=== PATIENT | male | born 1985 | race Caucasian/White ===

== ENCOUNTER 2022-09-02 10:04 | Outpatient (CLI) | payer OTHER ==
[2022-09-02 10:40] VITALS: BP 122/68
--- NOTE | 2022-09-02 10:40 | SLEEP CARE CONSULTATION ---
Information from patient questionnaire entered by Em Fox. I have reviewed and concur with the information entered by Em Fox. This document represents the service I personally performed and the decisions made by me, Tabby Gordon ARNP. History of Present Illness Service Date and Time: 09/02/2022 1004 Reason for Visit: New patient Chief Complaint: reports: Unrefreshed sleep, Snoring, Observed pauses in breathing, Fatigue, Frequent awakenings at night Date of Onset: OVER 10 YRS Usual bedtime: 830-9PM Time it takes to fall asleep: 30-60 minutes Snores at night: Yes Observed to quit breathing while asleep: Yes Sleeps alone due to snoring: No Number of times waking at night: 5+ Reasons for waking at night: reports: Choking, Snoring, Gasping for air Toss, Turn, or Twitch while sleeping: Yes Recalls having dreams: Yes Usually gets out of bed at: 630AM; weekends [id number] Feels refreshed in the morning: No Morning headache: No Sleepy or fatigued during the day: Yes Ever fallen asleep while driving: No (has had some drowsy driving) Takes day naps: No Dreams during day naps: No Prior sleep studies: Yes ([facility] [id number] [place] 2019) Additional HPI information: I had the pleasure of seeing СВЕТЛАНА RDZ today regarding the possibility of him having a sleep disorder. His current complaints are unrefreshed sleep, snoring, observed pauses in breathing, fatigue and frequent night awakenings. He comes in today to see if he has sleep apnea. He has had two previous sleep studies but was never contacted with the results. He has had is PCM check and they could not find any records. He continues to have daytime fatigue, loud snoring and pauses in breathing. He has recorded himself sleeping and heard for himself the gasping sounds after pauses in his snoring. He knows that he has large tonsils and has tried to have them removed. He wakes up tired and is tired throughout the day. He does not like to take naps because then he cannot get to sleep at night. He normally takes around 30-60 minutes to fall asleep and the wakes up 5+ times during the night. He has woke himself up snoring, choking and gasping for air. He states his father was diagnosed with sleep apnea but does not use the PAP machine prescribed. - Parasomnia Symptoms Ever been unable to move upon waking from sleep: No Walks in sleep: No Talks in sleep: Yes Ever acted out dreams in sleep: No Ever felt weak in the knees when startled or emotional: Yes Bothered by creepy, crawly, restless sensations in legs: Yes (occasionally at nightly) Problems with memory or concentration: Yes (both) Subjective Initial [place] Sleepiness Scale score: 20 (08/13/22) Past Medical History Past Medical History: reports: GERD Social History The patient's occupation is a AM. Patient is and lives in [place]. Have you smoked in the past 12 months: No Alcohol use: Yes Alcohol amount and frequency: RECREATIONALLY Caffeine use: Yes Caffeine amount and frequency: A COUPLE A DAY Family History Family history of sleep disordered breathing: Yes Family Hx Sleep Apnea: Father: Sleep apnea - Untreated Allergies and Home Medications Known drug allergies: No Drug allergies reviewed: Yes (NKDA) Home medication list reviewed: Yes Allergy and home medication list: Medications: Pantoprazole Review of Systems Weight gain over past 5 years: 40 Cardiovascular: reports: palpitations (occasional, has been checked), chest pain, irregular heart rate or pulse Respiratory: reports: shortness of breath Gastrointestinal: reports: heartburn, diarrhea Neurological: reports: headaches, disorientation, gait or balance problems Psychiatric: reports: anxiety, depression Ear/Nose/Throat: reports: nasal congestion, sinus problems, dry mouth/throat, wisdom teeth removed. denies: tonsillectomy Endocrine: reports: sluggishness, excessive thirst Musculoskeletal: reports: back pain Immunologic: reports: rash Physical Exam Vital signs obtained and entered by: EM Massey MA Blood Pressure: 122/68 (LEFT ARM) Cuff size: regular Heart Rate: 86 O2 Saturation: 96 Height: 6 ft Weight: 269 lb 6.4 oz Body Mass Index: 36.5 BMI Classification: Obese Neck circumference: 18 Mouth and throat: narrow oropharynx Soft palate: normal Hard palate: normal Uvula: normal Uvula visualization: 0% Mallampati Class IV Tongue: normal in size Tonsils: 3+/kissing Neck: normal w/o lymphadenopathy or thyromegaly Heart: regular rate and rhythm Lungs: clear bilaterally Impression and Plan 1. Suspected Obstructive Sleep Apnea-Hypopnea Syndrome, as suggested by a history of loud and irregular snoring, observed cessation of breath while asleep, gasping or choking in sleep, frequent awakening during the night, unrefreshed sleep, cognitive impairment, and excessive daytime sleepiness. Narrow oropharynx and obesity are common predisposing factors for obstructive sleep apnea-hypopnea syndrome. I recommend proceeding to polysomnography to confirm the diagnosis and to assess severity. If the patient has significant sleep disordered breathing, a manual CPAP titration study will also be performed to find the optimal treatment pressure. I informed the patient of what the sleep studies involve and after some discussion, obtained agreement to proceed. The pathophysiology of obstructive sleep apnea-hypopnea syndrome was discussed with the patient and health risks of cardiovascular and cerebrovascular disease if not treated. Risks of drowsy driving discussed in detail and patient advised to avoid long distance driving and to stick puller at the first sign of drowsiness. Patient agreed to plan. * Schedule polysomnography * Avoid long distance driving or driving when feeling sleepy. * Avoid alcohol, sedative and muscle relaxant around bedtime. * Attempt to lose weight. * Review instructions provided by trained office staff on how to prepare for the sleep study. * Return for follow-up after sleep study completed. Counseling Topics: Weight loss health impact Visit Type: In Office Time Spent with Patient (minutes): 30 Provider Statement: I spent 100% of the Face to Face Visit with the patient with greater than 50% spent counseling the patient and coordination of care.
== END 2022-09-02 10:05 | disposition home or self-care (01) ==
LOC: SC 10:04
PROVIDERS: ATTEND Nurse Practitioner Family
DX: R06.83 Snoring (principal); G47.8 Other sleep disorders; R06.81 Apnea, not elsewhere classified; G47.10 Hypersomnia, unspecified; R53.83 Other fatigue; E66.9 Obesity, unspecified; Z68.36 Body mass index [BMI] 36.0-36.9, adult
CPT/HCPCS: 99203; 99212

== ENCOUNTER 2022-09-15 19:36 | Outpatient (CLI) | payer OTHER | END 2022-09-15 19:37 | disposition home or self-care (01) | LOC: SC 19:36 | PROVIDERS: ATTEND Nurse Practitioner Family | DX: G47.33 Obstructive sleep apnea (adult) (pediatric) (principal) | CPT/HCPCS: 95810 ==

== ENCOUNTER 2022-10-08 12:46 | Outpatient (CLI) | payer OTHER ==
[2022-10-08 13:25] VITALS: BP 114/70
--- NOTE | 2022-10-08 13:25 | SLEEP CARE CONSULTATION ---
Information from patient questionnaire entered by Jessica Fox. I have reviewed and concur with the information entered by Jessica Fox. This document represents the service I personally performed and the decisions made by , Tabby Gordon ARNP. History of Present Illness Service Date and Time: 10/08/2022 1246 Initial [place] Sleepiness Scale score: 20 (08/13/22) Current [place] Sleepiness Scale score: 15 (10/08/22) Additional HPI information: СВЕТЛАНА RDZ returns for follow up and results of the recently performed polysomnography. I explained the pathophysiology behind obstructive sleep apnea. We then spent quite a bit of time discussing different treatment options. For mild obstructive sleep apnea, surgery and oral appliance are alternatives to nasal CPAP therapy but in moderate or severe cases, nasal CPAP is the most effective and reliable treatment. Because apnea is primarily in supine position, then positional management therapy could be effective. Methods discussed such as positioning with pillows, using a T-shirt with tennis balls in the back, or commercially available products that have a pillow format on back to prevent supine sleep. I reviewed the impact of weight changes on sleep apnea and strongly recommended losing weight. After some discussion, the patient opted to go with the nasal CPAP therapy. Nasal autoCPAP set at 4-15 cmH20 will be ordered with rationale explained. A manual titration study will be ordered if unable to find optimal pressure with office adjustments. I explained how CPAP machine works and what to expect when using the machine. Using CPAP every night in order to get used to it was emphasized. Patient advised to put CPAP mask on before getting into bed so as not to fall asleep without CPAP. To assist acclimation to CPAP use, it could also be used for a short time during day while reading or watching TV. The patient was instructed to call the CPAP supplier to discuss any mechanical problem that may occur. If the mask given is uncomfortable or is difficult to keep on through the night even with adjustment, contact the CPAP supplier as many will replace with another mask style if notified before 30 days. If snoring or perceives is not getting enough air or too much air from the machine, notify this office. Patient counseled not drink alcohol less than 4 hours before bedtime as it can increase snoring and apnea. Patient was cautioned about risks of drowsy driving until sleepiness symptoms resolve. Sleep Study - Results Type of Sleep Study: Polysomnography (COMPLETED 09-15-22) Prior sleep studies: Yes ([facility] [id number] [place] 2019) Polysomnography/Home Sleep Study results: IMPRESSION: The quality of the study is good. The patient had normal sleep efficiency. The sleep architecture was abnormal for sleep fragmentation and reduced amount of time spent in slow wave sleep (N3). Respiratory monitoring showed mild obstructive sleep apnea-hypopnea (AHI = 5.4) associated with frequent arousals, oxyhemoglobin desaturation and mild hypoxia ([place] oxygen saturation of 83%). The respiratory events occurred almost exclusively during the limited supine sleep (supine AHI = 98.7; non- supine = 2.20). Snore was light in intensity. There was no significant periodic leg movement of sleep. Cardiac rhythm was normal sinus rhythm without significant arrhythmia. No abnormal behavior (parasomnia) observed during the night. Allergies and Home Medications Drug allergies reviewed: Yes (NKDA) Home medication list reviewed: Yes (no changes) Review of Systems Review of systems same as previous: Yes (no changes) Physical Exam Vital signs obtained and entered by: JESSICA Massey MA Blood Pressure: 114/70 (LEFT ARM) Cuff size: regular Heart Rate: 72 O2 Saturation: 98 Height: 6 ft Weight: 269 lb 9.6 oz Body Mass Index: 36.6 BMI Classification: Obese Impression and Plan 1. Obstructive Sleep Apnea-Hypopnea Syndrome, mild, with lowest oxygen saturation of 83%. Obviously this is the cause of the patients symptoms of unrefreshed sleep, and excessive daytime sleepiness. Positive pressure therapy could benefit gastric reflux. As mentioned above, the patient will be started on nasal autoCPAP therapy with pressure set at 4-15 cmH2O. A manual titration study will be completed if unable to find optimal treatment pressure with office adjustments. Compliance guidelines also reviewed. A copy of compliance guidelines will be given for reference at check out. Because the apnea is more severe supine, I instructed to avoid sleeping supine using pillow positioning until able to start CPAP use. * Nasal auto CPAP therapy, pressure at 4-15 cm H2O. * Attempt to lose weight. * Avoid alcohol consumption near bedtime. * Avoid supine sleep until using CPAP. * The patient is again cautioned about driving until sleepiness completely resolves. * Return one month after CPAP obtained. I will assess response to therapy and compliance at that time. Counseling Topics: Sleeping position, Weight loss health impact Visit Type: In Office Time Spent with Patient (minutes): 21 Provider Statement: I spent 100% of the Face to Face Visit with the patient with greater than 50% spent counseling the patient and coordination of care.
== END 2022-10-08 12:47 | disposition home or self-care (01) ==
LOC: SC 12:46
PROVIDERS: ATTEND Nurse Practitioner Family
DX: G47.33 Obstructive sleep apnea (adult) (pediatric) (principal); E66.9 Obesity, unspecified; Z68.36 Body mass index [BMI] 36.0-36.9, adult
CPT/HCPCS: 99212; 99213

== ENCOUNTER 2022-12-01 13:45 | Outpatient (CLI) | payer OTHER ==
[2022-12-01 14:27] VITALS: BP 126/72
--- NOTE | 2022-12-01 14:27 | SLEEP CARE CONSULTATION ---
Information from patient questionnaire entered by Em Fox. I have reviewed and concur with the information entered by Em Fox. This document represents the service I personally performed and the decisions made by me, Tabby Gordon ARNP. History of Present Illness Service Date and Time: 12/01/2022 1345 Previous diagnosis: Mild, Obstructive Sleep Apnea-Hypopnea Syndrome AHI: 5.4 () Reason for follow up: first compliance Equipment type: CPAP (RESMED Airsense 10 s/u 09/2022) Equipment obtained from: Other ([facility]; got initial supplies) Mask style: Nasal (over nose (3B [place])) Backup mask available: No (will keep old mask when replaced) Last cushion change: 1 month Prior sleep studies: Yes ([facility] 2019) Type of Sleep Study: Polysomnography (COMPLETED 09-15-22) HPI additional information: СВЕТЛАНА RDZ was diagnosed to have mild, AHI 5.4, obstructive sleep apnea- hypopnea syndrome (severe supine) and returned today for CPAP therapy first compliance follow-up. Sleep Study - Results Type of Sleep Study: Polysomnography (COMPLETED 09-15-22) Prior sleep studies: Yes ([facility] 2019) CPAP Compliance Data - Data Reviewed with Patient Average duration of nightly device use: 5 hours 2 minutes Compliance rate %: 67 (30/30 days used) Current pressure setting (cmH2O): 4-15 ( median 5.6, avg 8.7, max 9.7) Average residual AHI: 0.9 Central apnea: 0.0 Obstructive apnea: 0.7 Hypopnea: 0.1 Average large leak: 3.6 LPM Subjective Missed days of use due to: reports: other (taking off face when he is sleep; toss/turning a lot at night) Patient concerns: reports: mask discomfort, air blowing in eyes, mask leak noise, condensation in mask/hose (resolved with reduction of humidifier). denies: aerophagia, nasal congestion, dry mouth, nose, throat, epistaxis Observed to snore while using device: Yes (his mouth is open and will wake him up to close mouth) Current pressure setting perceived as: too low On therapy, patient: reports: other (not feeling much improvement; still waking up several times) Initial [place] Sleepiness Scale score: 20 (08/13/22) Current [place] Sleepiness Scale score: 17 (12/01/22) Allergies and Home Medications Known drug allergies: No Drug allergies reviewed: Yes Home medication list reviewed: Yes (no changes) Review of Systems Review of systems same as previous: Yes (no changes) Physical Exam Vital signs obtained and entered by: EM Massey MA Blood Pressure: 126/72 (LEFT ARM) Cuff size: regular Heart Rate: 94 O2 Saturation: 95 Height: 6 ft Weight: 274 lb 12.8 oz Body Mass Index: 37.3 BMI Classification: Obese Impression and Plan 1. Obstructive Sleep Apnea-Hypopnea Syndrome, mild (severe supine), with fair treatment compliance and good apnea control. On CPAP therapy, the patient does not feel he is sleeping better and is still waking up several times a night. He feels the pressure is too low at the start of the night but he notes higher pressure when he wakes up in the middle of the night. I will increase his ramp starting pressure to 5 cmH2O to decrease air hunger at night's onset. The patients pressure will be changed to autoCPAP 6-9 cmH20 to reflect pressures being used. Patient advised to contact me if pressure change is uncomfortable so that it can be adjusted. Goals for apnea control discussed. He is having some complaints from his abut snoring when using the CPAP but usually this is when he is on his back and his mouth is open (oral venting). I advised that he try a chinstrap or mouth tapes to keep mouth closed and prevent oral venting. He has tried melatonin to try to stay asleep at night but he complains that he still wakes up at night. I explained to him that melatonin can help him fall asleep but not stay asleep. He voiced understanding. Patient's apnea severity and rationale for treatment to reduce apnea, improve sleep quality and reduce cardiovascular and cerebrovascular events was reviewed. I also reviewed the benefit of consistent device use of CPAP for gastric reflux. 2. Obesity, unspecified. Currently patients BMI is 37.3. Obesity increases the risk of apnea, CPAP pressure requirements and overall health risks especially cardiovascular and diabetes. Thus patient is advised to lose weight. * Change auto CPAP pressure to 6-9 cmH2O * Notify me if snoring with mask or feeling that the pressure is too much or too little * Attempt to lose weight * Call this office if any problems using CPAP * Return for follow up in 1-2 months, or sooner if concerns arise Counseling Topics: Spare mask, Weight loss health impact Visit Type: In Office Time Spent with Patient (minutes): 25 Provider Statement: I spent 100% of the Face to Face Visit with the patient with greater than 50% spent counseling the patient and coordination of care.
== END 2022-12-01 13:46 | disposition home or self-care (01) ==
LOC: SC 13:45
PROVIDERS: ATTEND Nurse Practitioner Family
DX: G47.33 Obstructive sleep apnea (adult) (pediatric) (principal); E66.9 Obesity, unspecified; Z68.37 Body mass index [BMI] 37.0-37.9, adult
CPT/HCPCS: 99212; 99213

== ENCOUNTER 2023-01-05 13:48 | Outpatient (CLI) | payer OTHER ==
[2023-01-05 14:27] VITALS: BP 110/64
--- NOTE | 2023-01-05 14:27 | SLEEP CARE CONSULTATION ---
Information from patient questionnaire entered by Em Fox. I have reviewed and concur with the information entered by Em Fox. This document represents the service I personally performed and the decisions made by me, Tabby Gordon ARNP. History of Present Illness Service Date and Time: 01/05/2023 1348 Previous diagnosis: Mild, Obstructive Sleep Apnea-Hypopnea Syndrome AHI: 5.4 (09/2022) Reason for follow up: one month (F/U) Equipment type: CPAP (RESMED Airsense 10 s/u 09/2022) Equipment obtained from: Other ([facility]; getting supplies) Mask style: Nasal (over nose (3B [place])) Backup mask available: No (will keep old mask when replaced) Last cushion change: 3-4 weeks ago Prior sleep studies: Yes ([facility] 2019) Type of Sleep Study: Polysomnography (COMPLETED 09-15-22) HPI additional information: СВЕТЛАНА RDZ was diagnosed to have mild, AHI 5.4, obstructive sleep apnea- hypopnea syndrome and returned today for CPAP therapy one month follow-up. Sleep Study - Results Type of Sleep Study: Polysomnography (COMPLETED 09-15-22) Prior sleep studies: Yes ([facility] 2019) CPAP Compliance Data - Data Reviewed with Patient Average duration of nightly device use: 4 hours 8 minutes Compliance rate %: 43 ( days used) Current pressure setting (cmH2O): 6-9 Average residual AHI: 0.5 Central apnea: 0 Obstructive apnea: 0.3 Average large leak: 8.3 lpm Subjective Missed days of use due to: reports: travel (for work, unable to take with him) Patient concerns: reports: air blowing in eyes (occasional), condensation in mask/hose (adjusting humidityas needed), dry mouth, nose, throat (dry nose). denies: aerophagia, mask discomfort, mask leak noise, nasal congestion, epistaxis Observed to snore while using device: No (occasional) Current pressure setting perceived as: comfortable On therapy, patient: reports: drowsiness while driving, other (has not yet feeling better with CPAP use) Initial [place] Sleepiness Scale score: 20 (08/13/22) Current [place] Sleepiness Scale score: 18 (01/05/23) Allergies and Home Medications Known drug allergies: No Drug allergies reviewed: Yes Home medication list reviewed: Yes (no changes) Allergy and home medication list: Allergies No Known Drug Allergies Allergy (Verified 01/04/23 14:33) Review of Systems Review of systems same as previous: Yes (no changes) Physical Exam Vital signs obtained and entered by: EM Massey MA Blood Pressure: 110/64 (LEFT ARM) Cuff size: regular Heart Rate: 77 O2 Saturation: 96 Height: 6 ft Weight: 276 lb 3.2 oz Body Mass Index: 37.4 BMI Classification: Obese Impression and Plan 1. Obstructive Sleep Apnea-Hypopnea Syndrome, mild, with fair treatment compliance and good apnea control. Patient is really trying to wear his mask but he finds it off his face without knowledge of taking it off. He is comfortable with the mask on his face and has no issue with using the CPAP. He states if he could sleep with the mask for consecutive hours he does feel improvement on how rested he feels. He is still waking up multiple times a night and cannot sleep due to racing thoughts. Patient's apnea severity and rationale for treatment to reduce apnea, improve sleep quality and reduce cardiovascular and cerebrovascular events was reviewed. I also reviewed the benefit of consistent device use of CPAP for gastric reflux. 2. Obesity unspecified. Currently patients BMI is 37.4. Obesity increases the risk of apnea, CPAP pressure requirements and overall health risks especially cardiovascular and diabetes. Thus patient is advised to lose weight. 3. Insomnia, sleep maintenance. He has tried multiple [id number] sleep aid medication but has not found one that helps him to sleep consistently through the night. He has even tried melatonin. He is able to go to sleep without an issue but it is staying asleep that is the problem. He will wake up and because of thoughts, ruminating and racing, he is unable to fall back to sleep easily. He will wake up multiple times at night and subsequently does not feel rested the next day. Insomnia is generally caused by an irregular sleep schedule, spending too much time in bed, napping, caffeine, electronics, lack of a relaxing bedtime ritual and clock watching. Other factors can include anxiety/depression, pain, medications, and obstructive sleep apnea. A sleep diary will be completed for 2 weeks to assist implementation of recommendations and for further evaluation of sleep concerns. I will have him follow up for evaluation of his insomnia in 1-2 months. * Continue auto CPAP pressure at 6-9 cmH2O * Follow up with Dr. Leija for insomnia * Notify me if snoring with mask or feeling that the pressure is too much or too little * Attempt to lose weight * Call this office if any problems using CPAP * Return for follow up in 1-2 months, or sooner if concerns arise Counseling Topics: Spare mask, Weight loss health impact Visit Type: In Office Time Spent with Patient (minutes): 22 Provider Statement: I spent 100% of the Face to Face Visit with the patient with greater than 50% spent counseling the patient and coordination of care.
== END 2023-01-05 13:49 | disposition home or self-care (01) ==
LOC: SC 13:48
PROVIDERS: ATTEND Nurse Practitioner Family
DX: G47.33 Obstructive sleep apnea (adult) (pediatric) (principal); E66.9 Obesity, unspecified; Z68.37 Body mass index [BMI] 37.0-37.9, adult
CPT/HCPCS: 99212; 99213

== ENCOUNTER 2023-02-01 14:22 | Outpatient (CLI) | payer OTHER ==
[2023-02-01 21:39] VITALS: BP 114/72
--- NOTE | 2023-02-01 21:39 | SLEEP CARE CONSULTATION ---
Information from patient questionnaire entered by Em Fox. I have reviewed and concur with the information entered by Em Fox. This document represents the service I personally performed and the decisions made by me, Sotero Patel MD, [facility]. History of Present Illness Service Date and Time: 02/01/2023 1422 Previous diagnosis: Mild, Obstructive Sleep Apnea-Hypopnea Syndrome AHI: 5.4 (09/2022) Reason for follow up: one month (F/U) Equipment type: CPAP (RESMED Airsense 10 s/u 09/2022) Equipment obtained from: Other ([facility]; getting supplies) Mask style: Nasal (over nose (3B [place])) Prior sleep studies: Yes ([facility] [id number] [place] 2019) Type of Sleep Study: Polysomnography (COMPLETED 09-15-22) HPI additional information: Mr. Schilling was diagnosed to have mild obstructive sleep apnea-hypopnea syndrome and returns today for follow up of CPAP therapy. The patient purchased the device from [facility] and was fitted with a nasal mask. He uses the device occasionally and all through the night. The compliance report shows that he uses the device 57 nights out of the past 90 nights, averaging 4.4 hours a night. He complains of no particular problem with the device such as soreness on the face, dry nose, epistaxis, nasal congestion or headache. He thinks that the pressure of 6 - 9 cmH2O is comfortable. On the CPAP therapy he has not noticed any difference. His , on the other hand, says he is breathing better and does not snore at all. [place] Sleepiness Scale score is 18. The average residual AHI is 0.5; and average time in large leak per day is 6.2 minutes a night. The 90th percentile pressure is 8.8 cmH2O. He continues to complain of excessive tossing and turning at night and waking up frequently. He feels tired during the day. He thinks he gets only 4 5 hours o f sleep at night. The problem has persisted for a decade. He has had two prior sleep studies and they were negative for significant sleep-disordered breathing. He tried positioning therapy and Cognitive behavior therapy (CBTi). He reports occasional restless leg syndrome. He is not taking any medication. Sleep Study - Results Type of Sleep Study: Polysomnography (COMPLETED 09-15-22) Prior sleep studies: Yes ([facility] [id number] [place] 2019) Subjective Initial [place] Sleepiness Scale score: 20 (08/13/22) Current [place] Sleepiness Scale score: 18 (02/01/23) Allergies and Home Medications Drug allergies reviewed: Yes Home medication list reviewed: Yes (none) Allergy and home medication list: Allergies No Known Drug Allergies Allergy (Verified 01/29/23 10:26) Review of Systems Review of systems same as previous: Yes Physical Exam Vital signs obtained and entered by: EM Massey MA Blood Pressure: 114/72 (LEFT ARM) Cuff size: long Heart Rate: 75 O2 Saturation: 98 Height: 6 ft Weight: 266 lb 6.4 oz Body Mass Index: 36.1 BMI Classification: Obese Impression and Plan IMPRESSION: 1. Obstructive Sleep Apnea-Hypopnea Syndrome, mild (AHI was 5.4), with the patient not using his CPAP much but would like to keep trying. He says because he tosses and turns a lot at night, the mask comes off on most nights. He would like to try a sleep aid to stay asleep wearing the CPAP. 2. Insomnia. The patient and his describe excessive movement at night. He says he has a regular sleep-wake schedule of 10 pm 6 am, but the usage graph shows the patient putting the CPAP on at midnight (machine could have been set at the CDT) and occasionally coming off at noon (probably 10 am PDT). If the graph is true, the patient has quite an irregular wakeup time which can contribute to his insomnia. There is probably a component of sleep state misperception. He may also has restless leg syndrome. PLAN: 1. Continue with autoCPAP set at 6 - 9 cm H2O. Have the time on his CPAP set to PDT. This way we can use his CPAP as the sleep log. 2. Prescription made for zolpidem 10 mg qhs on as needed basis; #30 with 2 refills. 3. Maintain a regular wake up time and spend no more than 8 hours in bed at night. Avoid naps. 4. Return for a follow up in one month. Follow up with Sleep Care in: 1-2 months Visit Type: In Office Other Participants: Spouse/Significant Other Time Spent with Patient (minutes): 15 Provider Statement: I spent 100% of the Face to Face Visit with the patient with greater than 50% spent counseling the patient and coordination of care.
== END 2023-02-01 14:23 | disposition home or self-care (01) ==
LOC: SC 14:22
PROVIDERS: ATTEND Internal Medicine Pulmonary Disease
DX: G47.33 Obstructive sleep apnea (adult) (pediatric) (principal); G47.00 Insomnia, unspecified; E66.9 Obesity, unspecified; Z68.36 Body mass index [BMI] 36.0-36.9, adult
CPT/HCPCS: 99212

== ENCOUNTER 2023-03-08 11:30 | Outpatient (CLI) | payer OTHER ==
[2023-03-08 13:06] VITALS: BP 118/64
--- NOTE | 2023-03-08 13:06 | SLEEP CARE CONSULTATION ---
Information from patient questionnaire entered by Em Fox. I have reviewed and concur with the information entered by Em Fox. This document represents the service I personally performed and the decisions made by me, Sotero Patel MD, [facility]. History of Present Illness Service Date and Time: 03/08/2023 1130 Previous diagnosis: Mild, Obstructive Sleep Apnea-Hypopnea Syndrome AHI: 5.4 (09/2022) Reason for follow up: one month Equipment type: CPAP (RESMED Airsense 10 s/u 09/2022) Equipment obtained from: Other ([facility]; getting supplies) Mask style: Nasal (over nose (3B [place])) Prior sleep studies: Yes ([facility] [place] 2019) Type of Sleep Study: Polysomnography (COMPLETED 09-15-22) HPI additional information: Mr. Schilling was diagnosed with mild obstructive sleep apnea-hypopnea syndrome and returns today for follow up of CPAP therapy. He actually has stopped using his CPAP because he has been sleeping well since I prescribed him zolpidem 10 mg a month ago. He says he takes it at 8:30 pm every day and goes to bed at 9:30 pm. He gets out of bed at 6 am on weekdays and 7 am on weekends. He does not nap during the day. [place] Sleepiness Scale score is 9. Sleep Study - Results Type of Sleep Study: Polysomnography (COMPLETED 09-15-22) Prior sleep studies: Yes ([facility]) Subjective Initial [place] Sleepiness Scale score: 20 (08/13/22) Current [place] Sleepiness Scale score: 9 (03/08/23) Allergies and Home Medications Drug allergies reviewed: Yes Home medication list reviewed: Yes Allergy and home medication list: Allergies No Known Drug Allergies Allergy (Verified 02/01/23 14:23) Review of Systems Review of systems same as previous: Yes Physical Exam Vital signs obtained and entered by: EM Massey MA Blood Pressure: 118/64 (LEFT ARM) Cuff size: regular Heart Rate: 65 O2 Saturation: 99 Height: 6 ft Weight: 261 lb Body Mass Index: 35.4 BMI Classification: Obese Impression and Plan IMPRESSION: 1. Obstructive Sleep Apnea-Hypopnea Syndrome, mild (AHI was 5.4), with the patient not using his CPAP anymore. I informed his that it is alright because his sleep-related breathing disorder is very mild. If he does not experience any benefit, he may choose to not use it. 2. Insomnia, improve with zolpidem. I explained to him that the medication is not to be taken indefinitely. His goal should be to get off the medication in a few months. In order for him not need the medication, I will have to reduce time spent in bed to 7 7.5 hours. If he gets out of bed at 6 am, he should not go to bed until 10:30 pm. Also, he needs to not get up any later than 6 am on weekends. PLAN: 1. Refill zolpidem with the instruction of reducing the dosage to 5 mg after 2 months, then to 2.5 mg after another months, then finally stop. 2. Maintain a regular wake up time and spend no more than 7 hours in bed at night. Avoid naps. 3. Return for a follow up in six months. Counseling Topics: Weight control Prescriptions: Device supplies Follow up with Sleep Care in: 1 year Visit Type: In Office Time Spent with Patient (minutes): 15 Provider Statement: I spent 100% of the Face to Face Visit with the patient with greater than 50% spent counseling the patient and coordination of care.
== END 2023-03-08 11:31 | disposition home or self-care (01) ==
LOC: SC 11:30
PROVIDERS: ATTEND Internal Medicine Pulmonary Disease
DX: G47.33 Obstructive sleep apnea (adult) (pediatric) (principal); G47.00 Insomnia, unspecified; E66.9 Obesity, unspecified; Z68.35 Body mass index [BMI] 35.0-35.9, adult; Z79.899 Other long term (current) drug therapy
CPT/HCPCS: 99212